=== PATIENT | male | born 1965 | race Caucasian/White ===

== ENCOUNTER 2021-06-17 07:20 | Day surgery (SDC) | payer MEDICARE ==
[2021-06-17] MEDS ORDERED: LIDOCAINE HCL 2% 100 MG/5 ML IJ ONE (07:21)
[2021-06-17] MEDS ORDERED: Depo-Medrol 40 MG/ML IM ONE (07:21)
[2021-06-17 08:45] LABS: INR 0.97 (0.8-3.0); PROTIME 11.4 SECONDS (9.4-12.5)
[2021-06-17] MEDS ORDERED: DIPRIVAN 200 MG/20 ML IV ONE (09:07)
--- NOTE | 2021-06-17 11:23 | XRAY ---
11 seconds fluoroscopy time in surgery for bilateral L4-S1 MBB.
--- NOTE | 2021-06-17 11:32 | XRAY ---
Indication: Bilateral L4-S1 MBB. Intraoperative fluoroscopy provided for 11 seconds. Single digital spot image submitted for interpretation demonstrates posterior needle tips projecting over the expected left and right L4-S1 nerve roots. Correlate with intraoperative findings/report.
[2021-06-17] MEDS ORDERED: Lactated Ringers 1,000 ML IV ONE (15:02)
== END 2021-06-17 10:00 | disposition home or self-care (01) ==
LOC: SDC-PAIN 07:20
PROVIDERS: ATTEND Psychiatry & Neurology Pain Medicine
DX: M47.816 Spondylosis without myelopathy or radiculopathy, lumbar region (principal); E11.9 Type 2 diabetes mellitus without complications; Z79.899 Other long term (current) drug therapy; Z79.01 Long term (current) use of anticoagulants
CPT/HCPCS: 36415; 64483; 64484; 64493; 64494; 72020; 77002; 82947; 85610; 93005; J1030; J2704